=== PATIENT | female | born 1980 | race Caucasian/White ===

== ENCOUNTER → 2023-06-25 09:58 | Outpatient (REF) | payer BC, SELFPAY | LOC: HWRAD 09:58 | PROVIDERS: ATTENDING PHYSICIAN Family Medicine | DX: R10.9 Unspecified abdominal pain (principal) | CPT/HCPCS: 76700 ==

== ENCOUNTER → 2024-01-20 18:37 | Outpatient (REF) | payer BC, SELFPAY | LOC: WDC 18:37 | DX: Z12.31 Encounter for screening mammogram for malignant neoplasm of breast (principal) | CPT/HCPCS: 77063; 77067 ==